=== PATIENT | female | born 1995 | race Caucasian/White ===

== ENCOUNTER 2018-08-22 19:18 | Emergency (ER) | payer OTHER ==
[~2018-08-22] VITALS: Ht 160 cm; Wt 49.4 kg
[2018-08-22] MEDS ORDERED: PRENATABS FA T1 EACH (19:30)
== END 2018-08-22 22:52 | disposition home or self-care (01) ==
LOC: ER 19:18
DX: O23.31 Infections of other parts of urinary tract in pregnancy, first trimester (principal); Z34.81 Encounter for supervision of other normal pregnancy, first trimester

== ENCOUNTER 2018-09-16 08:44 | Emergency (ER) | payer OTHER ==
[~2018-09-16] VITALS: Ht 160 cm; Wt 50.8 kg
[~2018-09-16 08:44] MED LIST: PRENATABS FA T1 EACH
== END 2018-09-16 12:18 | disposition home or self-care (01) ==
LOC: ER 08:44
DX: S89.81XA Other specified injuries of right lower leg, initial encounter (principal); S79.811A Other specified injuries of right hip, initial encounter; W18.31XA Fall on same level due to stepping on an object, initial encounter; Y93.89 Activity, other specified; Y92.89 Other specified places as the place of occurrence of the external cause; Y99.8 Other external cause status

== ENCOUNTER → 2018-12-05 | Emergency (ER) | payer OTHER | END | disposition left against medical advice (07) | LOC: ER 22:48 | DX: Z53.20 Procedure and treatment not carried out because of patient's decision for unspecified reasons (principal) ==

== ENCOUNTER 2018-12-21 18:14 | Inpatient (IN) | payer OTHER ==
[~2018-12-21] VITALS: Ht 160 cm; Wt 58.5 kg
== END 2018-12-26 14:38 | disposition home or self-care (01) | DRG 832 ==
LOC: OBS/DEL 18:14 → OB/GYN 20:26 → OBS/DEL 20:26 → LDR 20:26 → OB/GYN 12-22 12:34
PROVIDERS: ADMIT Obstetrics & Gynecology
PROC: BY4FZZZ Ultrasonography of Third Trimester, Single Fetus (ICD-10-PCS; principal; 2018-12-21)
PROC: 4A1HXCZ Monitoring of Products of Conception, Cardiac Rate, External Approach (ICD-10-PCS; 2018-12-21)
DX: O47.03 False labor before 37 completed weeks of gestation, third trimester (principal); O26.873 Cervical shortening, third trimester; Z34.03 Encounter for supervision of normal first pregnancy, third trimester

== ENCOUNTER 2019-02-05 16:16 | Outpatient (CLI) | payer OTHER | END 2019-02-06 11:05 | disposition home or self-care (01) | LOC: OBS/DEL 16:16 | DX: O76 Abnormality in fetal heart rate and rhythm complicating labor and delivery (principal); Z34.03 Encounter for supervision of normal first pregnancy, third trimester ==

== ENCOUNTER 2019-02-10 06:17 | Inpatient (IN) | payer OTHER ==
[~2019-02-10] VITALS: Ht 160 cm; Wt 64.9 kg
== END 2019-02-12 17:38 | DRG 807 ==
LOC: OBS/DEL 06:17 → LDR 09:03 → OB/GYN 18:13
PROVIDERS: ADMIT Obstetrics & Gynecology
PROC: 10E0XZZ Delivery of Products of Conception, External Approach (ICD-10-PCS; principal; 2019-02-10)
PROC: 0W8NXZZ Division of Female Perineum, External Approach (ICD-10-PCS; 2019-02-10)
PROC: 4A0HXFZ Measurement of Products of Conception, Cardiac Rhythm, External Approach (ICD-10-PCS; 2019-02-10)
DX: O80 Encounter for full-term uncomplicated delivery (principal); Z37.0 Single live birth; Z3A.38 38 weeks gestation of pregnancy; Z22.330 Carrier of Group B streptococcus

== ENCOUNTER 2021-08-12 18:57 | Emergency (ER) | payer OTHER ==
[~2021-08-12] VITALS: Ht 162.6 cm; Wt 59.4 kg
[2021-08-12] MEDS ORDERED: PRENATAL + DHA1 EAC1 (19:09)
== END 2021-08-12 21:30 | disposition home or self-care (01) ==
LOC: ER 18:57
DX: R10.2 Pelvic and perineal pain (principal); O26.852 Spotting complicating pregnancy, second trimester; O26.892 Other specified pregnancy related conditions, second trimester; Z3A.15 15 weeks gestation of pregnancy

== ENCOUNTER 2021-09-28 15:31 | Outpatient (CLI) | payer OTHER ==
[~2021-09-28 15:31] MED LIST changes: +PRENATAL + DHA1 EAC1
== END 2021-09-28 16:48 | disposition home or self-care (01) ==
LOC: PRENATAL 15:31
PROVIDERS: ATTEND Obstetrics & Gynecology Maternal & Fetal Medicine
DX: O35.0XX1 Maternal care for (suspected) central nervous system malformation in fetus, fetus 1 (principal); O35.3XX1 Maternal care for (suspected) damage to fetus from viral disease in mother, fetus 1; O98.512 Other viral diseases complicating pregnancy, second trimester; Z36.89 Encounter for other specified antenatal screening; Z3A.20 20 weeks gestation of pregnancy

== ENCOUNTER 2021-10-14 12:46 | Emergency (ER) | payer OTHER ==
[~2021-10-14] VITALS: Ht 162.6 cm; Wt 64.0 kg
== END 2021-10-14 15:03 | disposition home or self-care (01) ==
LOC: ER 12:46
DX: O26.812 Pregnancy related exhaustion and fatigue, second trimester (principal); Z3A.23 23 weeks gestation of pregnancy; Z03.818 Encounter for observation for suspected exposure to other biological agents ruled out

== ENCOUNTER 2021-11-26 20:59 | Outpatient (CLI) | payer OTHER ==
[2021-11-26] MEDS ORDERED: FLAGYL375 MG PO (21:41)
== END 2021-11-27 12:57 | disposition home or self-care (01) ==
LOC: OBS/DEL 20:59
PROVIDERS: ATTEND Obstetrics & Gynecology
DX: O23.593 Infection of other part of genital tract in pregnancy, third trimester (principal); B96.89 Other specified bacterial agents as the cause of diseases classified elsewhere; Z3A.29 29 weeks gestation of pregnancy

== ENCOUNTER 2022-01-16 11:55 | Outpatient (CLI) | payer OTHER ==
[~2022-01-16 11:55] MED LIST changes: +FLAGYL375 MG PO
[2022-01-16] MEDS ORDERED: PRENATAL CAPLE1 EAC1 PO (12:05)
== END 2022-01-16 18:18 | disposition home or self-care (01) ==
LOC: OBS/DEL 11:55
PROVIDERS: ATTEND Obstetrics & Gynecology
DX: O26.893 Other specified pregnancy related conditions, third trimester (principal); Z3A.36 36 weeks gestation of pregnancy; R10.2 Pelvic and perineal pain

== ENCOUNTER 2022-01-28 17:09 | Outpatient (CLI) | payer OTHER ==
[~2022-01-28 17:09] MED LIST changes: +PRENATAL CAPLE1 EAC1 PO
== END 2022-01-29 07:22 | disposition home or self-care (01) ==
LOC: OBS/DEL 17:09
PROVIDERS: ATTEND Obstetrics & Gynecology
DX: O47.1 False labor at or after 37 completed weeks of gestation (principal); Z3A.38 38 weeks gestation of pregnancy

== ENCOUNTER 2022-01-30 07:28 | Inpatient (IN) | payer OTHER ==
[~2022-01-30] VITALS: Ht 162.6 cm; Wt 76.7 kg
== END 2022-02-01 14:55 | disposition home or self-care (01) | DRG 807 ==
LOC: LDR 07:28 → OB/GYN 17:34
PROVIDERS: ADMIT Obstetrics & Gynecology; ATTEND Obstetrics & Gynecology
PROC: 10E0XZZ Delivery of Products of Conception, External Approach (ICD-10-PCS; principal; 2022-01-30)
PROC: 4A1HXCZ Monitoring of Products of Conception, Cardiac Rate, External Approach (ICD-10-PCS; 2022-01-30)
PROC: 0HQ9XZZ Repair Perineum Skin, External Approach (ICD-10-PCS; 2022-01-30)
DX: O70.0 First degree perineal laceration during delivery (principal); Z37.0 Single live birth; Z3A.38 38 weeks gestation of pregnancy; Z20.822 Contact with and (suspected) exposure to COVID-19